=== PATIENT | male | born 1970 | race Caucasian/White ===

== ENCOUNTER 2023-08-25 09:12 | Emergency (ER) | payer OTHER ==
[~2023-08-25] VITALS: Ht 165.1 cm; Wt 97.7 kg
[2023-08-25 10:03] VITALS: TEMP 98.9
[2023-08-25 11:05] VITALS: BP 128/71; PULSE 79; RESP 18
== END 2023-08-25 11:20 | disposition home or self-care (01) ==
LOC: EMS 09:12
DX: F10.129 Alcohol abuse with intoxication, unspecified (principal); F11.90 Opioid use, unspecified, uncomplicated
CPT/HCPCS: 71045; 99283